=== PATIENT | female | born 2000 | race African-American/Black ===

== ENCOUNTER 2022-12-07 07:15 | Day surgery (SDC) | payer SELFPAY ==
[~2022-12-07] VITALS: Ht 170.2 cm; Wt 54.6 kg
[2022-12-07 09:10] VITALS: BP 102/65; PULSE 76; TEMP 97.9
[2022-12-07 09:25] VITALS: BP 102/82; PULSE 70
[2022-12-07 09:40] VITALS: BP 92/64; PULSE 69
[2022-12-07 09:49] VITALS: BP 96/64; PULSE 73
--- NOTE | 2022-12-07 09:53 | NUR ---
0910- PATIENT RETURNS TO [facility] [place] [facility] VIA CART. PT AWAKE AND ALERT. RESPIRATIONS UNLABORED. AMBULATED TO RECLINER CHAIR WITH 2:1 SBA. PT DENIES NAUSEA OR ABDOMINAL PAIN. HOOKED UP TO MONITOR AND VS OBTAINED. CALL LIGHT AT SIDE AND PRESENT. 0917- DR. REYES IN ROOM SPEAKING WITH PATIENT. 0922- PATIENT TOLERATING MUFFIN AND SPRITE WITHOUT NAUSEA. 0938- D/C INSTRUCTIONS REVIEWED WITH PATIENT. PT VERBALIZED UNDERSTANDING AND A COPY OF INSTRUCTIONS PROVIDED IN D/C FOLDER. 0950- PATIENT DRESSES SELF. 0953- PATIENT DISCHARGED FROM UNIT VIA W/C TO A PERSONAL VEHICLE. PT LEFT HOSPITAL IN STABLE CONDITION.
[2022-12-07 11:44] VITALS: BP 106/80; PULSE 79; TEMP 97.9
== END 2022-12-07 09:53 | disposition home or self-care (01) ==
LOC: SDCO 07:15
DX: K64.0 First degree hemorrhoids (principal); K59.09 Other constipation; R10.30 Lower abdominal pain, unspecified; Z80.0 Family history of malignant neoplasm of digestive organs
CPT/HCPCS: J2704; J3010